=== PATIENT | male | born 2005 | race Two or more races ===

== ENCOUNTER 2025-08-12 18:13 | Emergency (ER) | payer MEDICAID, SELFPAY ==
[2025-08-12 18:14] VITALS: BMI 24.2
[2025-08-12 18:30] VITALS: BP 153/81; PULSE 85; RESP 18; TEMP 36.8; O2SAT 99
--- NOTE | 2025-08-12 19:39 | XR_ITS ---
Examination: CT abdomen and pelvis without contrast. Coronal 3-D reconstructions. Sagittal 2-D reconstructions. Date and time of exam: August 12, 2025, 1948 hours INDICATIONS: Onset lower abdominal pain today CTDI: vol (mGy): 7.53 DLP: (mGycm): 391 Technique: Axial images of the abdomen have been obtained, 3 mm slice thickness Intravenous contrast material has not been administered. Low dose protocols were performed. One or more of the following dose reduction techniques were used; automated exposure control, adjustment of the mA and/or KV according to patient size, use of iterative reconstruction technique. Findings: No focal liver or splenic lesions No gallstones No pancreatic or adrenal mass No renal or ureteral calculi, no hydronephrosis Aorta normal size Normal appendix No bowel obstruction No diverticulitis Normal seminal vesicles Normal prostate No bladder mass or bladder calculi IMPRESSION: No acute process in the abdomen or pelvis
[2025-08-12 20:21] LABS: Basophils # (Auto) 0.0 Thou/mm3 (0.0-0.2); Basophils % (Auto) 0 % (0-2.5); Eosinophils # (Auto) 0.0 Thou/mm3 (0.0-0.5); Eosinophils % (Auto) 0 % (0-10); Hematocrit 47.7 % (41.0-53.0); Hemoglobin 15.9 g/dL (13.5-16.0); Immature Granulocytes Auto 0.01 Thou/mm3 (0.00-0.00); Lymphocytes # (Auto) 1.8 Thou/mm3 (1.0-5.0); Lymphocytes % (Auto) 22 % (10-50); Mean Corpuscular HGB Conc 33.3 g/dl (31.0-37.0); Mean Corpuscular Hemoglobin 28.8 pg (25.0-35.0); Mean Corpuscular Volume 86 fL (80-100); Monocytes # (Auto) 0.6 Thou/mm3 (0.0-0.8); Monocytes % (Auto) 8 % (0-12); Neutrophils # (Auto) 5.6 Thou/mm3 (1.8-7.7); Neutrophils % (Auto) 70 % (37-80); Nucleated Red Blood Cell # 0.00 Thou/mm3 (0.00-0.00); Nucleated Red Blood Cell % 0 /100 WBC (0); Platelet Count 292 Thou/mm3 (140-440); RDW Standard Deviation 38.7 fL (35.1-43.9); Red Blood Count 5.53 Miln/mm3 (4.50-5.90); White Blood Count 8.1 Thou/mm3 (4.5-11.0)
[2025-08-12 20:41] LABS: Collection Type, Urine Clean Catch; Squamous Epithelial Cell,Urine 0 /hpf (0-5); WBC,Urine 0 /hpf (0-5)
[2025-08-12 20:47] LABS: Alanine Aminotransferase 25 U/L (10-49); Albumin, Serum 5.5 gm/dL (3.5-5.0); Albumin/Globulin Ratio 2.1 (1.2-2.2); Alkaline Phosphatase 122 U/L (46-116); Anion Gap 10 (7-16); Aspartate Amino Transferase 21 U/L (0-34); BUN/Creatinine Ratio 7 Ratio (12-20); Bilirubin,Total 0.3 mg/dL (0.3-1.2); Blood Urea Nitrogen 6 mg/dL (9-23); Calcium 10.3 mg/dL (8.3-10.6); Calcium (Corrected) 10.3 mg/dL (8.5-10.1); Carbon Dioxide 26.5 mMol/L (20.0-31.0); Chloride 104 mMol/L (98-107); Creatinine (Component) 0.9 mg/dL (0.6-1.3); Estimated Creatinine Clearance 119.1 mL/min (>60); Globulin 2.6 gm/dL (2.3-3.5); Glucose 121 mg/dL (74-106); Lipase 28 U/L (12-53); Osmolality,Calculated 278 (275-295); Potassium 4.9 mMol/L (3.4-5.1); Sodium 140 mMol/L (136-145); Total Protein 8.1 gm/dL (5.7-8.2); eGFR > 60 See Note
[2025-08-12 20:50] LABS: Amorphous Crystals,Urine Present (Absent); Bacteria,Urine Rare; Bilirubin,Urine Negative (Negative); Blood,Urine Negative (Negative); Clarity,Urine Turbid (Clear/Hazy); Color,Urine Yellow (Lt Yel-Yel); Glucose, Urine Negative (Negative); Ketones,Urine Negative (Negative); Leukocyte Esterase,Urine Negative (Negative); Nitrite,Urine Negative (Negative); PH,Urine 6.5 (5.0-7.0); Protein,Urine Trace (Neg - Trace); RBC,Urine 2 /hpf (0-3); Specific Gravity,Urine 1.027 (1.001-1.035); Urobilinogen,Urine Negative mg/dL (0.0-1.0)
--- NOTE | 2025-08-12 22:28 | PD.EDABDPN ---
ED Abdominal Pain RME/HPI General Chief Complaint: Abdominal Pain Stated complaint: GENERALIZED ABD PAIN X1 DAY Time seen by provider: 08/12/25 18:31 Arrival date/time: 08/12/25 18:13 This is a case of 19-year-old male with no medical history came into the emergency room due to abdominal pain for 2 days associated with nausea and vomiting the pain is more on the epigastric area and left upper quadrant burning in character denies any diarrhea constipation or blood in stool or vomiting fo blood Limitations: no limitations Related Data Previous Rx's ?Medication ?Instructions ?Recorded dicyclomine 20 mg tablet 20 mg PO TID PRN abdominal pain 08/12/25 #20 tabs famotidine 20 mg tablet (Pepcid) 20 mg PO BID 30 days #60 tabs 08/12/25 ondansetron 4 mg disintegrating 4 mg PO Q8H #20 tabs 08/12/25 tablet Allergies Allergy/AdvReac Type Severity Reaction Status Date / Time No Known Allergies Allergy Verified 08/12/25 18:16 Review of Systems Review of Systems Systems Reviewed: All systems reviewed, normal except as documented Constitutional Constitutional: Reports system reviewed and no additional complaints, except as documented and Reports as per HPI ENT Ears, Nose, Mouth, and Throat: Denies dysphagia and Denies odynophagia Cardiovascular Cardiovascular: Reports system reviewed and no additional complaints, except as documented and Reports as per HPI Respiratory Respiratory: Reports system reviewed and no additional complaints, except as documented and Reports as per HPI Gastrointestinal Gastrointestinal: Reports system reviewed and no additional complaints, except as documented, Reports as per HPI, Reports abdominal pain, Denies belching, Denies bloating, Denies change in bowel habits, Denies change in stool character, Denies coffee ground emesis, Denies constipation, Denies cramping, Denies diarrhea, Denies dyspepsia, Denies dysphagia, Denies early satiety, Denies excessive flatus, Denies fecal incontinence, Denies heartburn, Denies hematemesis, Denies hematochezia, Denies loose stools, Denies melena, Reports nausea, Denies odynophagia, Denies tenesmus and Reports vomiting Genitourinary Genitourinary: Reports system reviewed and no additional complaints, except as documented and Reports as per HPI Musculoskeletal Musculoskeletal: Reports system reviewed and no additional complaints, except as documented and Reports as per HPI Neurologic Neurologic: Reports system reviewed and no additional complaints, except as documented and Reports as per HPI Past Medical History Social History SMOKING STATUS: Never smoker ED Exam General Limitations: Present no limitations General appearance: Present alert, in no apparent distress and other (Patient is awake alert oriented not in distress nontoxic looking well-hydrated well nourished) Head Head exam: Present atraumatic, normocephalic and normal inspection Eye Eye exam: Present normal appearance, PERRL and EOMI ENT ENT exam: Present normal exam, normal oropharynx, mucous membranes moist and mucous membranes dry Neck Neck exam: Present normal inspection, full ROM and trachea midline; Absent tenderness, meningismus, lymphadenopathy or thyromegaly Chest Chest inspection: Present normal inspection and symmetric chest wall rise; Absent tenderness, rash or abscess Respiratory Respiratory exam: Present normal lung sounds bilaterally; Absent respiratory distress, wheezes, stridor, accessory muscle use or prolonged expiratory phase Cardiovascular Cardiovascular exam: Present regular rate, normal rhythm and normal heart sounds; Absent bradycardia, tachycardia, irregular rhythm, systolic murmur or diastolic murmur Abdominal Exam Abdominal exam: Present soft, tenderness (Mild tenderness epigastric area) and normal bowel sounds; Absent distention, guarding, rebound, rigidity, diminished bowel sounds, hyperactive bowel sounds, hypoactive bowel sounds, organomegaly, incision, psoas sign, obturator sign, heel tap sign, Reilly's sign, Rovsing's sign, tenderness at McBurney's Point, ascites, mass, bruit, pulsatile mass or hernia Extremities Exam Extremities exam: Present normal inspection and full ROM Back Exam Back exam: Present normal inspection and full ROM Neurological Exam Neurological exam: Present alert, oriented X3, CN II-XII intact, normal gait and reflexes normal; Absent motor sensory deficit Psychiatric Psychiatric exam: Present normal affect, normal mood and suicidal ideation (Excellent skin turgor) Skin Skin exam: Present warm, dry, intact and normal color Course Quality Measures none Orders Category Date Time Status CT abdomen pelvis wo con Stat Exams 08/12/25 19:39 Completed CBC Stat Lab 08/12/25 20:03 Completed Comprehensive Metabolic Panel Stat Lab 08/12/25 20:03 Completed Lipase Stat Lab 08/12/25 20:03 Completed Urinalysis Stat Lab 08/12/25 20:34 Completed Dicyclomine Inj [Bentyl Inj] Med 08/12/25 22:24 Once 10 mg IM X1 ONE Famotidine [Pepcid] Med 08/12/25 22:24 Once 40 mg PO X1 ONE Lidocaine 2% Viscous [Xylocaine 2% Viscous] Med 08/12/25 22:24 Once 15 ml PO X1 ONE Ondansetron Odt [Zofran Odt] Med 08/12/25 22:24 Once 4 mg PO X1 ONE mg Hyd/Al Hyd/Niesha Susp [Maalox Susp] Med 08/12/25 22:24 Once 30 ml PO X1 ONE Vital Signs Vital signs: Vital Signs Temperature 98.3 F 08/12/25 18:30 Pulse Rate 85 08/12/25 18:30 Respiratory Rate 18 08/12/25 18:30 Blood Pressure 153/81 H 08/12/25 18:30 Pulse Oximetry (%) 99 08/12/25 18:30 Oxygen Delivery Method Room Air 08/12/25 18:30 Oxygen saturation is 99% in room air Abdominal Pain MDM MDM Narrative MDM Narrative:: This is a case of 19-year-old male with no medical history came into the emergency room due to abdominal pain for 2 days associated with nausea and vomiting the pain is more on the epigastric area and left upper quadrant burning in character denies any diarrhea constipation or blood in stool or vomiting fo blood physical examination patient is awake alert oriented not in distress nontoxic looking well-hydrated well-nourished excellent skin turgor abdominal exam is benign nonsurgical no guarding no rebound no rigidity mild tenderness in the epigastric area and left upper quadrant negative psoas negative straight or negative Rovsing's negative McBurney's negative Reilly sign negative CVA tenderness excellent skin turgor no signs and symptoms sepsis no signs and symptoms symptoms of dehydration no signs and symptoms of acute abdomen patient was given GI cocktail here in the emergency room and Zofran and Bentyl which improved and resolve the pain blood test showed no leukocytosis no anemia kidney liver function is normal no electrolyte imbalance lipase is normal CT scan of the abdomen pelvis is also normal patient was treated as gastritis he was advised to follow-up with PCP in 2 days for reevaluation and for any worsening symptoms or any emergent concern return precaution in the ER is advised Patient was discharged with comfortable condition walking with stable gait. Patient verbalized no further complains explained diagnosis and answered patient question. Patient is comfortable with the proposed management plan including the need to follow up with his/her primary care physician and any specialist if applicable Discussed patient for any urgent condition or worsening sx, He/She needed to go to emergency room immediately or call 911. Patient acknowledge the responsibility to follow up as instructed and to monitor her/his symptoms. For any persistence of the symptoms for more than 3-5 days return precaution advised. Discussed the result of the test and was given printed discharge instruction Patient data External records reviewed:: [facility] Clinical information provided by:: patient Social determinants that could affect healthcare access:: none Patient has the following chronic illnesses:: None How is presenting disease/condition affected by chronic disease/condition?: no chronic disease Evaluation data The following diagnostics were reviewed and interpreted by me:: lab results and radiology exam(s) Lab and/or radiology exams considered but not ordered:: Reviewed Interpretation Summary: Reviewed Medications / Prescriptions Medications or Prescriptions considered but not ordered:: Given Medication administrations:: Medication Administration History Al Hydrox/Mg Hydrox/Simethicone (Mg Hyd/Al Hyd/Niesha (Maalox Reg) Susp 30 Ml Udc) 30 ml PO X1 ONE Stop: 08/12/25 22:25 Dicyclomine HCl (Dicyclomine Inj 10 Mg/Ml 2ml Vial) 10 mg IM X1 ONE Stop: 08/12/25 22:25 Famotidine (Famotidine 20 Mg Tablet) 40 mg PO X1 ONE Stop: 08/12/25 22:25 Lidocaine HCl (Lidocaine Viscous 2% 15 Ml Udc) 15 ml PO X1 ONE Stop: 08/12/25 22:25 Ondansetron HCl (Ondansetron Odt 4 Mg Tabrap) 4 mg PO X1 ONE; Protocol Stop: 08/12/25 22:25 Given Consultations Consultation(s) initiated? (list below): No Diagnosis Differential diagnosis abdominal pain: abdominal pain, acute appendicitis, calculus of kidney, constipation, diverticulitis, endometriosis, gastroenteritis, pancreatitis and small bowel obstruction Most likely diagnosis given after review of the tests above:: Gastritis Admission Indicated Admission indicated?: not indicated Explain why admission is indicated or not indicated:: Not indicated Admission Request Was there a request for admission?: No Admission Attestation Admission request attestation: Not indicated Disposition Plan Disposition Plan: Discharge Discharge Attestation Discharge Attestation: The patient and all family members were given an opportunity to ask questions and understood the discharge instructions. Discharge instructions specifically effects, indications for sooner follow up or return to the emergency department, and the expected course of current diagnosis. Patient condition: Stable Discharge Plan Plan Patient Disposition: HOME (Self Care) Patient condition on transfer: Stable Prescriptions/Referrals Prescriptions/Med Rec: New famotidine [Pepcid] 20 mg tablet 20 mg PO BID 30 Days Qty: 60 0RF dicyclomine 20 mg tablet 20 mg PO TID PRN (Reason: abdominal pain) Qty: 20 0RF ondansetron 4 mg tablet,disintegrating 4 mg PO Q8H Qty: 20 0RF Referrals: No Primary/Family,Physician [Primary Care Provider] - In 1 week Problem List Clinical Impression: Abdominal pain, Vomiting, Gastritis Patient/Caregiver Discharge Instructions Education Materials: Abdominal Pain, ED Gastritis (Adult), ED Vomiting (Adult) Additional Instructions: Follow-up with your primary care physician in 2 days for reevaluation and to be referred to librarian assistant for gastritis recurrence persistent worsening symptoms or any emergent concern call 911 or go to the nearest emergency room take your medication as directed increase water intake keep hydrated Pedialyte Gatorade for every bouts of vomiting and for hydration with skipping of meals avoid fatty fried high cholesterol food avoid spicy food avoid alcohol soda cofee Print Language: Maldivian Stand Alone Forms: Cele Award Info., Patient Portal Info Letter PA/MICROBIOLOGY TECHNOLOGIST Supervising Physician PA/MICROBIOLOGY TECHNOLOGIST Supervising Physician: Dr marky lopez
[2025-08-12] MEDS: FAMOTIDINE 20 MG TABLET 40 MG PO (22:40)
[2025-08-12] MEDS: DICYCLOMINE INJ 10 MG/ML 2ML VIAL IM (22:41)
[2025-08-12] MEDS: MG HYD/AL HYD/SIME (Maalox Reg) SUSP 30 ML UDC PO (22:41)
[2025-08-12] MEDS: ONDANSETRON ODT 4 MG TABRAP PO (22:41)
[2025-08-12] MEDS: LIDOCAINE VISCOUS 2% 15 ML UDC PO (22:41)
[2025-08-12 22:46] VITALS: BP 150/78; PULSE 85; RESP 16; TEMP 36.9; O2SAT 100
== END 2025-08-12 22:48 | disposition home or self-care (01) ==
PROVIDERS: Nurse Practitioner Family; Emergency Provider Emergency Medicine
DX: K29.70 Gastritis, unspecified, without bleeding (principal)
CPT/HCPCS: 36415; 74176; 80053; 81001; 83690; 85025; 96372; 99283; J0500; J3490; Q0162; A9270